=== PATIENT | male | born 1950 | race Caucasian/White ===

== ENCOUNTER 2017-08-19 21:29 | Emergency (ER) | payer OTHER ==
[~2017-08-19] VITALS: Ht 175.3 cm; Wt 113.6 kg
[2017-08-19 22:01] VITALS: BP 156/74
== END 2017-08-19 22:13 | disposition left against medical advice (07) ==
LOC: ED 22:07
DX: Z00.00 Encounter for general adult medical examination without abnormal findings (principal)
CPT/HCPCS: 99283